=== PATIENT | male | born 1945 | race Caucasian/White ===

== ENCOUNTER → 2020-06-21 12:52 | Outpatient (CLI) | payer MEDICARE, OTHER, SELFPAY ==
--- NOTE | 2020-06-21 13:08 | US_ITS ---
PROCEDURE: US FNA THYROID CLINICAL INDICATION: RT THYROID NODULE COMPARISON: No exams were available for comparison TECHNIQUE: Following time-out procedure, obtaining informed consent, using aseptic technique and local anesthesia with buffered lidocaine, fine-needle aspiration was performed of the nodule in the upper pole. Of interest using sonographic guidance. 3 passes were made into the nodule with a [id number] needle. Specimen was given to cytology. The patient tolerated the procedure well without evidence of immediate complications and left the ultrasound suite in stable condition. FINDINGS: CYTOLOGY: Negative for malignant cells. Benign follicular nodule IMPRESSION: Uneventful ultrasound-guided fine needle aspiration of right thyroid nodule showing benign findings Dictated by: Ibrahima Perry MD 06/27/2020 10:36 Ibrahima Perry MD in [place] 06/27/2020 10:36
== END ==
PROVIDERS: Visit Provider Otolaryngology
DX: D34 Benign neoplasm of thyroid gland (principal)
CPT/HCPCS: 10005; 76536; 88173; 88305